=== PATIENT | female | born 1985 | race Caucasian/White ===

== ENCOUNTER 2017-06-27 14:00 | Inpatient (IN) | payer OTHER ==
[2017-06-27] MEDS ORDERED: BETAMET ACET/BETAMET NA PH 30 MG/5 ML VIAL IM ONE (15:00)
[2017-06-27 15:55] LABS: URINE APPEARANCE CLEAR; URINE BILIRUBIN NEGATIVE (NEGATIVE); URINE BLOOD 1+ (NEGATIVE); URINE COLOR LTYELLOW; URINE GLUCOSE (UA) NEGATIVE (NEGATIVE); URINE KETONE NEGATIVE (NEGATIVE); URINE LEUK ESTERASE TRACE (NEGATIVE); URINE NITRITE NEGATIVE (NEGATIVE); URINE PROTEIN NEGATIVE (NEGATIVE); URINE UROBILINOGEN NEGATIVE mg/dL (0.2-1.0)
[2017-06-27 16:24] LABS: BASOPHIL 0.3 % (0-2.0); EOSINOPHIL 1.7 % (0-4.5); MCH 30.2 pg (25.7-33.7); MCHC 34.8 g/dl (32.0-36.0); MEAN CELL VOLUME 86.9 fl (80-96); MEAN PLT VOLUME 10.4 fl (7.5-11.1); NEUTROPHILS 69.3 % (42.8-82.8); PLATELET COUNT 153 K/MM3 (134-434); RDW 13.9 % (11.6-15.6); WHITE BLOOD COUNT 7.9 K/mm3 (4.0-10.0)
[2017-06-27 16:40] LABS: ANION GAP 8 (8-16); CALCIUM 8.8 mg/dL (8.5-10.1); CO2 25 mmol/L (21-32); CREATININE 0.5 mg/dL (0.55-1.02); GLUCOSE,RANDOM 88 mg/dL (74-106); SGOT/AST 27 U/L (15-37); SGPT/ALT 24 U/L (12-78); URIC ACID 3.6 mg/dL (2.6-7.2)
[2017-06-27 16:44] LABS: INR 0.95 (0.82-1.09); PROTHROMBIN TIME (PATIENT) 10.4 SEC (9.98-11.88)
[2017-06-27 16:46] LABS: URINE BACTERIA RARE /hpf (NONE SEEN); URINE MUCUS RARE; URINE RBC 1 /hpf (0-3); URINE WBC 2 /hpf (3-5)
[2017-06-27 16:47] LABS: ACTIVATED PTT 27.9 SECONDS (26.9-34.4)
[2017-06-27] MEDS ORDERED: ELECTROLYTE-148 SOLN 500 ML IV ONE (17:00)
[2017-06-27] MEDS ORDERED: ELECTROLYTE-148 SOLN 500 ML IV SCH (17:30)
[2017-06-27] MEDS ORDERED: CITRIC ACID/SODIUM CITRATE 30 ML UNIT-DOSE CUP PO ONE (17:30)
[2017-06-27 17:39] VITALS: BMI 33.9
[2017-06-27] MEDS ORDERED: TUBERCULIN PPD 5 TU/0.1ML SYRINGE (IN PATIENT USE ONLY) ID ONE (18:00)
[2017-06-27] MEDS ORDERED: IBUPROFEN 800 MG/8 ML IJ IVPB PRN ×2 (21:29→21:32)
[2017-06-27] MEDS ORDERED: IBUPROFEN 600 MG TABLET (FP) PO PRN (21:29)
[2017-06-27] MEDS ORDERED: METHYLERGONOVINE MALEATE 0.2 MG/1 ML AMP IM PRN (21:29)
[2017-06-27] MEDS ORDERED: D5W-LR W/ 20 UNITS OXYTOCIN 1,000 ML IV SCH (21:30)
--- NOTE | 2017-06-27 21:32 | HP ---
Past Medical History - Admission History of Present Illness: 32 yo @35 10/21 by first trimester ultrasound, EDC 07/31/2017 complicated by: 1. dichorionic / diamniotic twin gestation, spontaneous concordant growth, EFW (06/27): Twin A 2268 (36%); Twin B 2557 (59%); 11% discordance 2. abnormal 1 H GCT (147) - normal 3 H GTT 3. Maternal obesity (BMI 33) 4. Recent ultrasound findings with twin A low normal fluid volume, today on ultrasound MVP 2.7 Patient was sent for evaluation from the office today where she was undergoing routine ultrasound and was found to have elevated BPs, new onset severe headache and significant edema. She reports no other compaints, + FM, no LOF or VB History Source: Patient Limitations to Obtaining History: No Limitations - Past Medical History Cardiovascular: No: HTN Pulmonary: No: Asthma Gastrointestinal: No: GERD ...: 3 ...Para: 0 ...Term: 0 ...: 0 ...Spon : 2 ...Induced : 0 ...Multiple Gestation: 0 ...LMP: 10/12/16 ... Weeks Gestation by Dates: 36.6 ...EDC by Dates: 07/19/17 ...EDC by Sono: 07/31/17 Heme/Onc: No: Anemia - Past Surgical History Past Surgical History: Yes: None Hx Myomectomy: No Hx Transabdominal Cerclage: No - Smoking History Smoking history: Former smoker Have you smoked in the past 12 months: Yes Aproximately how many cigarettes per day: 20 If you are a former smoker, when did you quit?: 8 months ago - Alcohol/Substance Use Hx Alcohol Use: No History of Substance Use: reports: None - Social History History of Recent Travel: No Home Medications - Allergies Allergies/Adverse Reactions: Allergies Allergy/AdvReac Type Severity Reaction Status Date / Time No Known Allergies Allergy Verified 06/27/17 14:48 - Home Medications Home Medications: Ambulatory Orders Vit No.130/Iron/FA [ Vitamins] 1 each PO DAILY 06/27/17 Ranitidine HCl [Zantac 75] 75 mg PO DAILY 06/27/17 Review of Systems - Review of Systems Neck: reports: No Symptoms Cardiovascular: reports: Edema Respiratory: reports: No Symptoms Gastrointestinal: reports: No Symptoms Genitourinary: reports: No Symptoms Musculoskeletal: reports: No Symptoms Integumentary: reports: No Symptoms Neurological: reports: Headache Endocrine: reports: No Symptoms Hematology/Lymphatic: reports: No Symptoms Psychiatric: reports: No Symptoms Physical Exam - Maternity Vital Signs: Vital Signs Temperature 97.6 F 06/27/17 18:00 Pulse Rate 87 06/27/17 19:00 Respiratory Rate 18 06/27/17 19:00 Blood Pressure 137/84 06/27/17 19:00 O2 Sat by Pulse Oximetry (%) Constitutional: Yes: Well Nourished, No Distress, Calm Neck: Yes: Supple Cardiovascular: Yes: Regular Rate and Rhythm Lungs: Clear to auscultation - Abdominal Exam/OB Fundal Height: 40 Number of Fetuses: Multiple Presentation: Twins Contractions: No Category: I Accelerations: Non-Uniform Decelerations: None - Physical Exam Edema: Yes Edema: LLE: 1+, RLE: 1+ Psychiatric: Yes: Alert, Oriented - Labs Lab Results: CBC, BMP 06/27/17 16:00 06/27/17 16:00 PNL: O positive, antibody negative, RPR NR, Rubella Immune, HBs Ag negative, HIV negative Hemorrhage Risk Assessment - Risk Factors Medium Risk Factors: Yes: Multiple gestation High Risk Factors: Yes: None Risk Score: 1 Risk Level: Medium Risk Assessment/Plan 32 yo @ 35 1/7 wks elevated BP, new onset YEAGER 1. Reviewed symptoms with patient, discussed concern for preeclampsia, given severity of symptoms and new onset BP, concern for preeclampsia with severe symptoms. Discussed proceeding with delivery via section. Discussed risks of delivery including but not limited to infection, bleeding, damage to surrounding organs such as bowel bladder and ureters, injury to infants. She expressed understanding. 2. Given < 36 wks, will give BMZ x1 3. Will f/u labs 4. Will consider magnesium PP for prophylaxis if BPs continue to be elevated PP 5. Will proceed with delivery
--- NOTE | 2017-06-27 21:34 | PN ---
Delivery - Delivery Section: Primary EBL (cc): 600 Delivery, Single - [place] Feeding Plan Initial Plan: Elected not to breastfeed exclusively throughout hospitalization Delivery, Multiple Births - Condition of Multiple Births [place] 1 (A) Medical Insurance Claims Specialist/Boots And Shoes Supervisor Present: Yes Infant Gender: Female Position: Right, OT Total Hours ROM (HRS/MINS): 4lb 4oz Placenta: Yes: Expressed [place] 2 (B) Medical Insurance Claims Specialist/Boots And Shoes Supervisor Present: Yes Gender: Male Position: Left, OT Total Hours ROM (HRS/MINS): 5lb 7 oz Placenta: Yes: Expressed - 1 Minute Score: 9 5 Minutes Score: 9 2 (B) 1 Minute Score: 9 2 (B) 5 Minutes Score: 9 Remarks - Remarks Remarks: Surgeon: Lawrence Assist: Harish Anesthesia: Bret IVF: 2000 UOP:600 Findings: Baby A - Female, ROT, 9,9 wt 4lb 4 oz; Baby B - Male, LOT, head extended, 9,9 wt 5lb 7 oz; normal tubes and ovaries bilaterally Dictation: [id number]
[2017-06-27 21:42] LABS: ARTERIAL BLD GAS O2 SATURATION 57.7 % (90-98.9); ARTERIAL BLOOD GAS BASE EXCESS -2.6 meq/l (-2-2); ARTERIAL BLOOD GAS HCO3 22.6 meq/L (22-26); ARTERIAL BLOOD GAS PO2 25.7 mmHg (80-100)
[2017-06-27 21:45] LABS: ARTERIAL BLD GAS O2 SATURATION 34.1 % (90-98.9); ARTERIAL BLOOD GAS BASE EXCESS -4.6 meq/l (-2-2); ARTERIAL BLOOD GAS HCO3 23.3 meq/L (22-26); ARTERIAL BLOOD GAS PO2 19.7 mmHg (80-100)
[2017-06-27 21:49] LABS: ARTERIAL BLOOD GAS pH 7.35 (7.35-7.45); LPM/O2% 21%; PT. ON O2? NO
[2017-06-27 21:50] LABS: ARTERIAL BLOOD GAS pH 7.25 (7.35-7.45); LPM/O2% 21%; PT. ON O2? NO
[2017-06-28] MEDS: ONDANSETRON 4 MG/2 ML VIAL IVPUSH PRN ×2 (00:04→05:58)
[2017-06-28 00:22] LABS: BASOPHIL 0.1 % (0-2.0); MCH 29.5 pg (25.7-33.7); MCHC 33.7 g/dl (32.0-36.0); MEAN CELL VOLUME 87.4 fl (80-96); MEAN PLT VOLUME 10.6 fl (7.5-11.1); NEUTROPHILS 89.8 % (42.8-82.8); PLATELET COUNT 139 K/MM3 (134-434); WHITE BLOOD COUNT 12.9 K/mm3 (4.0-10.0)
[2017-06-28 00:43] LABS: ALBUMIN 2.2 g/dl (3.4-5.0); ANION GAP 12 (8-16); BILIRUBIN,TOTAL 0.4 mg/dL (0.2-1.0); CALCIUM 7.9 mg/dL (8.5-10.1); CO2 22 mmol/L (21-32); CREATININE 0.5 mg/dL (0.55-1.02); GLUCOSE,RANDOM 119 mg/dL (74-106); SGOT/AST 31 U/L (15-37); SGPT/ALT 27 U/L (12-78); TOT PROT 5.6 g/dl (6.4-8.2)
[2017-06-28 00:44] LABS: ALK PHOS 170 U/L (45-117)
[2017-06-28] MEDS ORDERED: ONDANSETRON 4 MG/2 ML VIAL ONE (05:55)
[2017-06-28 06:49] LABS: BASOPHIL 1.1 % (0-2.0); MCH 29.4 pg (25.7-33.7); MCHC 33.8 g/dl (32.0-36.0); MEAN CELL VOLUME 87.1 fl (80-96); MEAN PLT VOLUME 8.6 fl (7.5-11.1); NEUTROPHILS 84.5 % (42.8-82.8); PLATELET COUNT 113 K/MM3 (134-434); RDW 13.7 % (11.6-15.6)
--- NOTE | 2017-06-28 07:20 | PN ---
Post Progress Note - Subjective Subjective: Patient without acute complaints. Had nausea and vomiting overnight, now resolved. Also episode if itching, resolved s/p bendryl. Episode of blurry vision last night, BP not elevated and PEC labs normal. Currently NPO. No ambulation or voiding yet. Mclean with clear yellow urine. Denies change in vision, RUQ pain, scotomata Desires to breastfeed Type of Delivery: Primary C/S Vital Signs: Vital Signs Temperature 98.2 F 06/28/17 06:30 Pulse Rate 83 06/28/17 06:30 Respiratory Rate 20 06/28/17 06:30 Blood Pressure 138/72 06/28/17 06:30 O2 Sat by Pulse Oximetry (%) 100 06/27/17 22:30 Breast Exam: Yes: Soft Uterus: Yes: Fundus Firm, Fundus below umbilicus Incision: Yes: Dressing dry and intact Abdomen/GI: Yes: Abdomen soft, Tender (incisional), Passing flatus, Tolerating PO Lochia: Yes: Serosa Lochia, amount: Small Extremities: Yes: Calves non-tender, Edema (+1) - Labs Labs: CBC WBC 15.0 K/mm3 (4.0-10.0) H 06/28/17 06:30 RBC 3.45 M/mm3 (3.60-5.2) L 06/28/17 06:30 Hgb 10.2 GM/dL (10.7-15.3) L 06/28/17 06:30 Hct 30.1 % (32.4-45.2) L 06/28/17 06:30 MCV 87.1 fl (80-96) 06/28/17 06:30 MCH 29.4 pg (25.7-33.7) 06/28/17 06:30 MCHC 33.8 g/dl (32.0-36.0) 06/28/17 06:30 RDW 13.7 % (11.6-15.6) 06/28/17 06:30 Plt Count 113 K/MM3 (134-434) L 06/28/17 06:30 MPV 8.6 fl (7.5-11.1) D 06/28/17 06:30 Neutrophils % 84.5 % (42.8-82.8) H 06/28/17 06:30 Lymphocytes % 5.5 % (8-40) L 06/28/17 06:30 Monocytes % 8.9 % (3.8-10.2) D 06/28/17 06:30 Eosinophils % 0.0 % (0-4.5) 06/28/17 06:30 Basophils % 1.1 % (0-2.0) D 06/28/17 06:30 Retic Count 2.19 % (0.5-1.5) H 06/27/17 16:00 Assessment/Plan 32 yo POD # 1 s/p primary CD 1. No S/S PEC, BP normal. Plt with mild decrease today. Will continue to follow for Sx PEC 2. AM CBC stable 3. Rh positive status, no rhogam indicated. 4. Encourage ambulation and incentive spirometer use 5. Continue oral pain medication 6. Anticipate discharge home postoperative day #3 or #4
[2017-06-28] MEDS: PRENATAL VITAMINS W/ FOLIC ACID TABLET (FP) PO SCH (09:10)
--- NOTE | 2017-06-28 10:23 | PN ---
Progress Note (short form) - Note Progress Note: Post op day#1.S/P C Section under spinal anesthesia with duramorph uneventful.Patient stable and c/o little pain for which she is on medication.No any anesthesia related problem.Patient DC from the anesthesia care.
--- NOTE | 2017-06-28 12:50 | OP ---
DATE OF OPERATION: 06/27/2017 ATTENDING PHYSICIAN RESPONSIBLE TO SIGN REPORT: Dariana Bravo MD PREOPERATIVE DIAGNOSIS: Intrauterine 35 weeks, cervical preeclampsia. POSTOPERATIVE DIAGNOSIS: Intrauterine 35 weeks, cervical preeclampsia. FINDINGS: Female in LOT position; Apgars 9, 9; weight 9 pounds, 2 ounces, length 19.5 inches; nuchal cord x1 reduced, normal tubes and ovaries bilaterally. SURGERY: Primary delivery via low transverse Pfannenstiel skin incision. SURGEON: Dariana Bravo MD WEB UI SOFTWARE ENGINEER: Jp Moreira MD ANESTHESIOLOGIST: González Queen MD INTRAVENOUS FLUIDS: 2000. URINE OUTPUT: 600. ESTIMATED BLOOD LOSS: 600. FINDINGS: Baby A female infant in ROT position; Apgars 9, 9; weight 4 pounds, 4 ounces. Baby B male in LOT position; head extended, Apgars 9, 9; weight 5 pounds, 7 ounces. Normal tubes and ovaries bilaterally; appendix noted normal. INDICATIONS: Patient is a 32-year-old 3, para 2, at 35-1/7 weeks gestation, who presented for evaluation of elevated blood pressures and headaches. She was evaluated, noted to have persistent elevated blood pressures with concern for preeclampsia with severe features. She was counseled regarding delivery via . Risks, benefits, alternatives, and complications of procedure were discussed including infection, bleeding, damage to surrounding organs such as bowel, bladder, ureters. She expressed understanding and was brought to the operating room. DESCRIPTION OF PROCEDURE: When anesthesia was found to be adequate, patient was prepped and draped in a normal sterile fashion, placed in dorsal supine position with a leftward tilt. An approximately 11-cm skin incision was made with the knife and carried to the underlying rectus fascia using the Bovie electrocautery. The fascia was nicked in the midline, extended laterally using the Manuel scissors. The inferior portion of the incision was tented up using José clamps and dissected off the underlying rectus muscles using the Manuel scissors. Attention was brought to the superior portion, where in similar fashion, it was tented up using José clamps, and dissected off the underlying rectus muscles using the Manuel scissors. The rectus muscles were in the midline. The peritoneum was entered bluntly and extended laterally and inferiorly using the Metzenbaum scissors. The vesicouterine peritoneum was identified, entered sharply, and the hysterotomy was performed and extended laterally using the bandaged scissors. A was brought to the hysterotomy site. Amniotomy was performed. Clear fluid noted. was brought to the hysterotomy site, and the head was delivered followed by shoulders and body without difficulty. Cord blood and cord gases were collected and sent. Infant B was brought to the hysterotomy site. The head was noted to be extended. The head was flexed, and the infants head was brought to the hysterotomy site, and the head was delivered followed by shoulders and body without difficulty. Cord blood and cord gases were collected and sent. The Placenta was manually extracted. The uterus was cleared of all clot and debris. The uterus was closed using 0 Biosyn in a running layer, 2nd layer was an imbricated layer. The peritoneum was closed using 0 Biosyn in a running fashion. The peritoneum was closed using 2-0 Biosyn in a running fashion. The rectus muscles were reapproximated using 0 Biosyn in an interrupted fashion. The fascia was closed using 0 Vicryl in a running fashion. The subcutaneous fat was reapproximated using 0 Vicryl in a running fashion, and the skin was reapproximated using 3-0 Vicryl. The patient tolerated the procedure well. Estimated blood loss was 600 mL. Patient was brought to the recovery room in stable condition. Esha [id number]
[2017-06-28] MEDS: oxyCODONE HCL 5 MG TABLET PO PRN ×3 (13:06→23:18)
[2017-06-28] MEDS: ACETAMINOPHEN 325 MG TABLET (FP) PO PRN ×3 (13:06→23:18)
[2017-06-28] MEDS: SIMETHICONE 80 MG TAB.CHEW (FP) PO PRN ×3 (13:07→23:18)
[2017-06-28] MEDS ORDERED: BISACODYL 10 MG SUPP.RECT RC PRN (21:30)
--- NOTE | 2017-06-29 08:34 | PN ---
Progress Note (short form) - Note Progress Note: pod 2 doing well, ambulating , has cramps, no n/v, passing gas CBC, BMP 06/28/17 06:30 06/27/17 23:55 Last Vital Signs Temp Pulse Resp BP Pulse Ox 97.9 F 80 20 131/78 100 06/28/17 21:00 06/28/17 21:00 06/28/17 21:00 06/28/17 21:00 06/27/17 22:30 abdomen soft, no distension, no cva incision dry, clean no calf tenderness lochia mild plan ambulate, pain management cbc in am
[2017-06-29] MEDS: PRENATAL VITAMINS W/ FOLIC ACID TABLET (FP) PO SCH (09:52)
[2017-06-29] MEDS: SIMETHICONE 80 MG TAB.CHEW (FP) PO PRN (12:22)
[2017-06-29] MEDS: oxyCODONE HCL 5 MG TABLET PO PRN (12:23)
[2017-06-29] MEDS: ACETAMINOPHEN 325 MG TABLET (FP) PO PRN (12:23)
[2017-06-30] MEDS: SIMETHICONE 80 MG TAB.CHEW (FP) PO PRN ×2 (03:03→12:32)
[2017-06-30] MEDS: oxyCODONE HCL 5 MG TABLET PO PRN ×2 (03:03→12:32)
[2017-06-30] MEDS: ACETAMINOPHEN 325 MG TABLET (FP) PO PRN ×2 (03:03→12:33)
[2017-06-30 07:28] LABS: BASOPHIL 0.9 % (0-2.0); EOSINOPHIL 1.8 % (0-4.5); MCH 29.8 pg (25.7-33.7); MCHC 34.2 g/dl (32.0-36.0); MEAN CELL VOLUME 87.2 fl (80-96); MEAN PLT VOLUME 9.3 fl (7.5-11.1); NEUTROPHILS 68.2 % (42.8-82.8); PLATELET COUNT 179 K/MM3 (134-434); RDW 14.1 % (11.6-15.6); WHITE BLOOD COUNT 11.3 K/mm3 (4.0-10.0)
--- NOTE | 2017-06-30 10:54 | PN ---
Progress Note (short form) - Note Progress Note: pod 3 ambulating, voids ok, passing gas CBC, BMP 06/30/17 07:00 06/27/17 23:55 Last Vital Signs Temp Pulse Resp BP Pulse Ox 98.5 F 86 20 127/84 100 06/30/17 08:52 06/30/17 08:52 06/30/17 08:52 06/30/17 08:52 06/27/17 22:30 abdomen soft, no distension , no cva incision dry , claen no calf tenderness plan ambulate, ,plan for d/c home in am
[2017-06-30] MEDS: PRENATAL VITAMINS W/ FOLIC ACID TABLET (FP) PO SCH (12:32)
[2017-07-01] MEDS: ACETAMINOPHEN 325 MG TABLET (FP) PO PRN (01:38)
[2017-07-01] MEDS: SIMETHICONE 80 MG TAB.CHEW (FP) PO PRN (01:39)
[2017-07-01 10:19] VITALS: BP 139/63; PULSE 74; TEMP 98.6
[2017-07-01] MEDS: PRENATAL VITAMINS W/ FOLIC ACID TABLET (FP) PO SCH (10:40)
--- NOTE | 2017-07-01 14:17 | DS ---
Physical Exam-RESPIRATORY THERAPY MANAGER Vital Signs: Vital Signs Temperature 98.6 F 07/01/17 09:00 Pulse Rate 74 07/01/17 09:00 Respiratory Rate 20 07/01/17 09:00 Blood Pressure 139/63 07/01/17 09:00 O2 Sat by Pulse Oximetry (%) 100 06/27/17 22:30 Constitutional: Yes: Well Nourished, No Distress, Calm Eyes: Yes: WNL, Conjunctiva Clear, EOM Intact HENT: Yes: WNL, Atraumatic, Normocephalic Neck: Yes: WNL, Supple, Trachea Midline Cardiovascular: Yes: WNL, Regular Rate and Rhythm Respiratory: Yes: WNL, Regular, CTA Bilaterally Gastrointestinal: Yes: WNL ...Rectal Exam: Yes: WNL Renal/: Yes: WNL ....Post : Yes: Uterus firm, Uterus non-tender, Slight lochia rubra Breast(s): Yes: WNL Musculoskeletal: Yes: WNL Extremities: Yes: WNL Edema: No Integumentary: Yes: WNL Wound/Incision: Yes: Clean/Dry, Well Approximated, Steri Strips Neurological: Yes: WNL, Alert, Oriented ...Motor Strength: WNL Psychiatric: Yes: WNL, Alert, Oriented Labs: CBC, BMP 06/30/17 07:00 06/27/17 23:55 Delivery - Delivery Section: Primary, Low Flap Transverse Type of Anesthesia: Spinal Episiotomy/Laceration: None EBL (cc): 600 Delivery, Single - [place] Feeding Plan Initial Plan: Elected not to breastfeed exclusively throughout hospitalization Delivery, Multiple Births - Condition of Multiple Births [place] 1 (A) Travel Rn/Youth Accommodation Support Worker Present: Yes Travel Rn: Martha Breen Infant Gender: Female Weight: 4 lb 4 oz Position: Right, OT Total Hours ROM (HRS/MINS): 4lb 4oz [place] 2 (B) Travel Rn/Youth Accommodation Support Worker Present: Yes Travel Rn: Martha Breen Gender: Male Weight: 5 lb 7 oz Position: Left, OT Total Hours ROM (HRS/MINS): 5lb 7 oz - 1 Minute Score: 9 5 Minutes Score: 9 [place] 2 (B) 1 Minute Score: 9 2 (B) 5 Minutes Score: 9 Discharge Summary Reason For Visit: C SECTION Procedures: Principal: primary LST c/s - Instructions Diet, Activity, Other Instructions: return to office in 1 week for incision check and 6 weeks for check. call for appointment. Referrals: Dariana Bravo MD [Staff Physician] - - Home Medications Comprehensive Discharge Medication List: Ambulatory Orders Vit No.130/Iron/FA [ Vitamins] 1 each PO DAILY 06/27/17 Ranitidine HCl [Zantac 75] 75 mg PO DAILY 06/27/17
--- NOTE | 2017-07-02 13:20 | PATH ---
Surgical Pathology Report Patient Name: MEGHAN FRAUSTO [facility]. Rec. #: [id number] /Age/Gender: 1985 (Age: 32) / F Account: [id number] Location: [facility] OBS/REGIONAL ENGAGEMENT CONSULTANT Taken: 06/27/2017 Received: 06/28/2017 Reported: 07/02/2017 Physicians: Dariana Bravo Specimen(s) Received PLACENTA,TWIN Clinical History , twin gestation, spontaneous x2, preeclampsia Primary c/section for preeclampsia Final Diagnosis TWIN PLACENTA, DELIVERY: DIAMNIOTIC DICHORIONIC TWIN PLACENTA: PLACENTA TWIN A: FOCALLY DISRUPTED THIRD TRIMESTER PLACENTA WITH MILD PREVILLOUS, PERIVILLOUS, AND PRECHORIONIC FIBRIN DEPOSITION, THREE VESSEL UMBILICAL CORD, AND UNREMARKABLE PLACENTAL MEMBRANES. PLACENTA TWIN B: FOCALLY DISRUPTED THIRD TRIMESTER PLACENTA WITH MILD PREVILLOUS, PERIVILLOUS, AND PRECHORIONIC FIBRIN DEPOSITION, THREE VESSEL UMBILICAL CORD, AND UNREMARKABLE PLACENTAL MEMBRANES. Electronically Signed Edgardo Blake M.D. Gross Description Received in formalin labeled "twin A and B placenta" is a twin placenta, comprised of 2 separate discs, joined by a dividing membranes. There is 1 clamp marking the umbilical cord of placenta "A" and 2 clamps marking the umbilical cord of placenta "B" per the surgeon. Placenta "A" is 379 g and measures 20.0 x 15.0 x 1.5 cm. The attached membranes are saab, translucent with focal opacities and insert marginally. The umbilical cord measures 15 cm in length and averages 0.9 cm in diameter. The cord inserts eccentrically, 6 cm to the nearest margin. No true knots or strictures are identified. Cut surface of the umbilical cord reveals 3 vessels. The surface is herrera-blue with fibrin deposition and appropriate caliber vessels. The maternal surface is red-brown with focal defects. Sectioning reveals red-brown, spongy parenchyma. No focal lesions are identified. Placenta "B" is 351 g and measures 16.5 x 14.5 x 1.5 cm. The attached membranes are saab, translucent with focal opacities and insert marginally. The umbilical cord measures 8 cm in length and averages 1.3 cm in diameter. The cord inserts eccentrically, 2 cm to the nearest margin. No true knots or strictures are identified. Cut surface of the umbilical cord reveals 3 vessels. The surface is herrera-blue with fibrin deposition and appropriate caliber vessels. The maternal surface is red-brown with focal defects. Sectioning reveals red-brown, spongy parenchyma. No lesions are identified. Wastewater Project Manager sections are submitted in 7 cassettes as follows: 1-placenta "A" membrane roll and umbilical cord; 9-3-oukm-thickness sections of placenta "A"; 4-dividing membranes; 5-placenta "B" membrane rolls and umbilical cord; 9-2-bssc-thickness sections of placenta "B". 06/29/2017
== END 2017-07-01 14:15 | disposition home or self-care (01) | DRG 766 ==
LOC: JDEL 14:00 → JLDR 16:00 → J3W 23:37
PROVIDERS: ADMIT Obstetrics & Gynecology; ATTEND Obstetrics & Gynecology
PROC: 10D00Z1 Extraction of Products of Conception, Low, Open Approach (ICD-10-PCS; principal; 2017-06-27)
DX: O30.043 Twin pregnancy, dichorionic/diamniotic, third trimester (principal); O14.94 Unspecified pre-eclampsia, complicating childbirth; Z3A.35 35 weeks gestation of pregnancy; Z37.2 Twins, both liveborn
CPT/HCPCS: 36415; 36600; 59025; 80048; 80053; 81003; 81015; 82803; 82977; 83010; 84450; 84460; 84550; 85025; 85044; 85610; 85730; 86593; 86850; 86900; 86901; 88307-TC; 96372

== ENCOUNTER 2017-07-15 18:14 | Inpatient (IN) | payer OTHER ==
[2017-07-15 18:19] VITALS: BMI 28.5
--- NOTE | 2017-07-15 18:39 | PDOC ---
Attending Attestation - Resident Resident Name: Jsesica Moe - ED Attending Attestation I have performed the following: I have examined & evaluated the patient, The case was reviewed & discussed with the resident, I agree w/resident's findings & plan, Exceptions are as noted - HPI HPI: 07/15/17 19:35 32y F approx 2 weeks s/p csection sent to the ED for evaluation by Dr. Moreira for evaluation of her csection wound. The pt was seen by dr. Moreira a few days ago and started on abx due to some redness and wound dehicense. pt denies any fever/chills, abd pain, generalized weakness. on exam pt appears well, in no distress her abd noted for lower abd incision with approx .5cm wound dehicience. no discharge noted. there is very mild eruthema on the border of the incision intermittently w/o warmth, inudration, tenderness. pts vitals noted for htn will ck ua, blood work to r/o preeclampsia pt dnies any headache/visoin changes suggestive of such 07/16/17 12:35 labs reviewed and no signs of proteinuria, abnormal LFTs or abnormal platelets the pt is to be admitted per plumber cub due to persistent htn will admit to dr. Fox service Case discussed in detail with admitting physician including history, physical exam and ancillary studies. Admitting physician has assumed care for the patient, will follow all pending diagnostics and will complete the evaluation and treatment. - Physicial Exam PE: 07/17/17 09:12 see above - Medical Decision Making 07/17/17 09:12 see above
--- NOTE | 2017-07-15 18:49 | PDOC ---
History of Present Illness - General Chief Complaint: Wound Infection Stated Complaint: PAIN Time Seen by Provider: 07/15/17 18:19 History Source: Patient - History of Present Illness Initial Comments: 07/15/17 19:09 CC: C-S wound infection Patient is a 32 y.o. female with a PMH of recent (06/27/17) C-S who presents today c/o foul odor, discharge and tenderness @ her C-S site. Patient notes she was evaluated by her telecommunication systems designer last Sunday (07/09/17) at which time her telecommunication systems designer , Dr. Moreira, started her on Keflex (500 mg BID). Patient states she has noticed increasing erythema as well as a foul odor since 2 days previous and she contacted Dr. Moreira who advised she go to urgent care or the ED. Patient denies any fevers, chills, nausea, vomiting or post operative complications. Patient had multiple births (twins) with male child remaining in the NICU for breathing difficulties. PMD: Dr. Moreira NKDA Surgical: C-S (06/27/17) Social: (+) nicotine: 3-4 cigarettes/daily, (-) alcohol, (-) marijuana/cocaine/ heroin Past History - Past Medical History Allergies/Adverse Reactions: Allergies Allergy/AdvReac Type Severity Reaction Status Date / Time No Known Allergies Allergy Verified 07/15/17 18:16 Home Medications: Ambulatory Orders Vit No.130/Iron/FA [ Vitamins] 1 each PO DAILY 06/27/17 Ranitidine HCl [Zantac 75] 75 mg PO DAILY 06/27/17 Ibuprofen [Motrin -] 600 mg PO QID #28 tablet 07/01/17 Oxycodone HCl/Acetaminophen [Percocet 5-325 mg Tablet] 1 tab PO Q6H #20 tablet MDD 4 07/01/17 Asthma: No Cancer: No Cardiac Disorders: No Diabetes: No HTN: No Seizures: No Thyroid Disease: No - Suicide/Smoking/Psychosocial Hx Smoking History: Current every day smoker Have you smoked in the past 12 months: Yes Number of Cigarettes Smoked Daily: 20 If you are a former smoker, when did you quit?: 8 months ago Information on smoking cessation initiated: No Hx Alcohol Use: No Drug/Substance Use Hx: No Hx Substance Use Treatment: No Review of Systems - Review of Systems Constitutional: No: Chills, Fever HEENTM: No: Blurred Vision, Throat Pain Respiratory: No: Cough, Shortness of Breath Cardiac (ROS): No: Chest Pain, Edema, Lightheadedness, Palpitations ABD/GI: No: Constipated, Diarrhea, Nausea, Vomiting : No: Burning, Dysuria Neurological: No: Headache, Tingling All Other Systems: Reviewed and Negative *Physical Exam - Vital Signs Last Vital Signs Temp Pulse Resp BP Pulse Ox 98.7 F 64 18 150/90 100 07/15/17 18:16 07/15/17 18:16 07/15/17 18:16 07/15/17 18:16 07/15/17 18:16 - Physical Exam General Appearance: Yes: Nourished, Appropriately Dressed Neck: positive: Trachea midline, Supple Respiratory/Chest: positive: Lungs Clear, Normal Breath Sounds Cardiovascular: positive: Regular Rhythm, Regular Rate. negative: Edema Gastrointestinal/Abdominal: positive: Normal Bowel Sounds, Soft, Other (6 cm C/ S incision with some erythema, foul odor, small pinpoint lesion on L side with grayish discoloration; U/S showed no fluid collection) Musculoskeletal: positive: Normal Inspection. negative: CVA Tenderness Extremity: positive: Normal Inspection Integumentary: positive: Normal Color, Dry, Warm Neurologic: positive: Fully Oriented, Alert Medical Decision Making - Medical Decision Making 07/15/17 18:44 Patient is a 32 y/o female with a recent (06/27) C-S who presents with concern for surgical incision infection. On PE, patient's BP is noted to be 150's/90's - concern for pre-eclampsia. Bedside U/S showed no fluid collection @ incision site. PLAN: 1. UA 2. CBC, CMP 3. Bedside U/S 07/15/17 18:[address] Ross (covering for patient's telecommunication systems designer, Dr. Moreira) - patient was evaluated in office on 07/09 @ which time BP was 114/86. Recommends starting with Labetalol (20 mg IV) and if systolic pressure remains 140's giving a dose of Procardia XL (30 mg). Requests CBC, CMP for pre- eclampsia evaluation and to be called with lab results/updated on patient's BP. Dr. Ross: 07/15/17 19:18 Patient signed out to Dr. Torres (Resident) and Dr. Valencia (Attending) *DC/Admit/Observation/Transfer Diagnosis at time of Disposition: care following delivery
[2017-07-15] MEDS ORDERED: LABETALOL HCL 5 MG/1 ML (100MG/20 ML VIAL) IVPUSH ONE (18:53)
[2017-07-15] MEDS ORDERED: CEFAZOLIN (PRE-DOCKED) 1 GM in DEXTROSE 5%-WATER - 50 ML IVPB ONE (18:54)
[2017-07-15] MEDS ORDERED: ceFAZolin 2 GRAM PREMIX BAG IVPB ONE (18:57)
[2017-07-15] MEDS ORDERED: LABETALOL HCL 5 MG/1 ML (200MG/40ML VIAL) IVPB ONE (19:15)
[2017-07-15] MEDS ORDERED: CEFAZOLIN (PRE-DOCKED) 100 ML IVPB ONE (19:16)
[2017-07-15 19:32] LABS: URINE APPEARANCE SLCLOUDY; URINE BILIRUBIN NEGATIVE (NEGATIVE); URINE BLOOD 3+ (NEGATIVE); URINE COLOR LTYELLOW; URINE GLUCOSE (UA) NEGATIVE (NEGATIVE); URINE KETONE NEGATIVE (NEGATIVE); URINE LEUK ESTERASE NEGATIVE (NEGATIVE); URINE NITRITE NEGATIVE (NEGATIVE); URINE PROTEIN NEGATIVE (NEGATIVE); URINE UROBILINOGEN NEGATIVE mg/dL (0.2-1.0)
[2017-07-15 19:40] LABS: URINE MUCUS RARE; URINE RBC 3 /hpf (0-3); URINE WBC 9 /hpf (3-5)
[2017-07-15 19:40] LABS: BASOPHIL 1.3 % (0-2.0); EOSINOPHIL 4.1 % (0-4.5); MCH 29.5 pg (25.7-33.7); MCHC 33.7 g/dl (32.0-36.0); MEAN CELL VOLUME 87.6 fl (80-96); MEAN PLT VOLUME 9.2 fl (7.5-11.1); NEUTROPHILS 46.9 % (42.8-82.8); PLATELET COUNT 232 K/MM3 (134-434); RDW 14.5 % (11.6-15.6); WHITE BLOOD COUNT 5.5 K/mm3 (4.0-10.0)
[2017-07-15 20:02] LABS: ALBUMIN 3.6 g/dl (3.4-5.0); ALK PHOS 115 U/L (45-117); ANION GAP 4 (8-16); BILIRUBIN,TOTAL 0.5 mg/dL (0.2-1.0); CALCIUM 8.8 mg/dL (8.5-10.1); CO2 30 mmol/L (21-32); CREATININE 0.9 mg/dL (0.55-1.02); GLUCOSE,RANDOM 85 mg/dL (74-106); SGOT/AST 22 U/L (15-37); SGPT/ALT 31 U/L (12-78); TOT PROT 7.5 g/dl (6.4-8.2)
[2017-07-15] MEDS ORDERED: NIFEdipine E.R. 30 MG TABLET (FP) PO ONE (20:14)
--- NOTE | 2017-07-15 21:01 | PDOC ---
*Physical Exam - Vital Signs Last Vital Signs Temp Pulse Resp BP Pulse Ox 98.7 F 54 L 18 154/91 99 07/15/17 18:16 07/15/17 20:00 07/15/17 20:00 07/15/17 20:00 07/15/17 20:00 ED Treatment Course - LABORATORY CBC & Chemistry Diagram: 07/15/17 19:18 07/15/17 19:18 - ADDITIONAL ORDERS Additional order review: Laboratory Results 07/15/17 07/15/17 19:18 19:10 Sodium 139 Potassium 4.5 Chloride 105 Carbon Dioxide 30 D Anion Gap 4 L BUN 12 D Creatinine 0.9 D Creat Clearance w eGFR > 60 Random Glucose 85 D Calcium 8.8 Total Bilirubin 0.5 D AST 22 D ALT 31 Alkaline Phosphatase 115 D Total Protein 7.5 D Albumin 3.6 D Urine Color Ltyellow Urine Appearance Slcloudy Urine pH 6.0 Urine Protein Negative Urine Glucose (UA) Negative Urine Ketones Negative Urine Blood 3+ H Urine Nitrite Negative Urine Bilirubin Negative Urine Urobilinogen Negative Urine RBC 3 Urine WBC 9 Ur Epithelial Cells Rare Urine Mucus Rare 07/15/17 19:18 RBC 4.58 D MCV 87.6 MCHC 33.7 RDW 14.5 MPV 9.2 Neutrophils % 46.9 D Lymphocytes % 40.0 D Monocytes % 7.7 Eosinophils % 4.1 D Basophils % 1.3 - Medications Given in the ED: ED Medications Discontinued Medications Generic Name Dose Route Start Last Admin Trade Name Freq PRN Reason Stop Dose Admin Cefazolin Sodium/Dextrose 2 gm 07/15/17 18:57 07/15/17 19:20 Ancef 2 Gm Premixed Ivpb - IVPB 07/15/17 18:58 2 gm ONCE ONE Administration Cefazolin Sodium 1 gm/ 100 mls @ 100 mls/hr 07/15/17 18:54 07/15/17 19:45 Dextrose IVPB 07/15/17 19:53 Not Given ONCE ONE Labetalol HCl 20 mg 07/15/17 18:53 07/15/17 19:25 Normodyne Injection - IVPUSH 07/15/17 18:54 20 mg ONCE ONE Administration Nifedipine 30 mg 07/15/17 20:14 07/15/17 20:26 Procardia Xl - PO 07/15/17 20:15 30 mg ONCE ONE Administration Medical Decision Making - Medical Decision Making 07/15/17 20:[address] Moe. Case discussed with Dr. Pompa who requested admission to [facility] for overnight monitoring of BP with diagnosis of hypertension. Instructed to do hourly BP checks and call her whenever BP exceeds 150/90. Will also write for 2 more doses of Cephazolin and do CMP/CBC in the morning. *DC/Admit/Observation/Transfer Diagnosis at time of Disposition: wound disruption, Hypertension, condition or complication - Discharge Dispostion Condition at time of disposition: Stable Admit: Yes
--- NOTE | 2017-07-15 23:29 | HP ---
Admitting History and Physical - Primary Care Physician PCP: Jp Moreira - Admission Chief Complaint: 32 yo s/p c/section @ 35 wks 06/27/17 for Preeclampsia with twins. She presented to ER due to minimal smudjing from the incision. She was noted to have BP 150/90, given dose of Labetalol 20mg IV, which did not improve BP. She was given Procardia 30mg XL and admited for observation. History of Present Illness: 1. Twin c/s 06/27/17 @ 35 weeks -Preeclampsia, no PP MgSo4 She denied YEAGER, blurry vision History Source: Patient Limitations to Obtaining History: No Limitations - Past Medical History ...LMP: 10/12/16 ...: No - Past Surgical History Past Surgical History: Yes: None, - Smoking History Smoking history: Current every day smoker Have you smoked in the past 12 months: Yes Aproximately how many cigarettes per day: 20 If you are a former smoker, when did you quit?: 8 months ago - Alcohol/Substance Use Hx Alcohol Use: No History of Substance Use: reports: None - Social History History of Recent Travel: No Home Medications - Allergies Allergies/Adverse Reactions: Allergies Allergy/AdvReac Type Severity Reaction Status Date / Time No Known Allergies Allergy Verified 07/15/17 18:16 - Home Medications Home Medications: Ambulatory Orders Nifedipine ER [Procardia Xl -] 30 mg PO DAILY #30 tab.er.24 07/16/17 Review of Systems - Review of Systems Constitutional: reports: No Symptoms Eyes: reports: No Symptoms Neck: reports: No Symptoms Cardiovascular: reports: No Symptoms Respiratory: reports: No Symptoms Gastrointestinal: reports: No Symptoms Genitourinary: reports: No Symptoms Breasts: reports: No Symptoms Reported Musculoskeletal: reports: No Symptoms Integumentary: reports: No Symptoms Neurological: reports: No Symptoms Endocrine: reports: No Symptoms Hematology/Lymphatic: reports: No Symptoms Psychiatric: reports: No Symptoms Physical Examination Vital Signs: Vital Signs Temperature 98.4 F 07/15/17 21:42 Pulse Rate 62 07/15/17 21:42 Respiratory Rate 16 07/15/17 21:42 Blood Pressure 130/87 07/15/17 21:42 O2 Sat by Pulse Oximetry (%) 99 07/15/17 21:42 Constitutional: Yes: Well Nourished Eyes: Yes: WNL HENT: Yes: WNL Neck: Yes: WNL Cardiovascular: Yes: WNL Respiratory: Yes: WNL Gastrointestinal: Yes: WNL Breast(s): Yes: WNL Extremities: Yes: WNL Edema: No Wound/Incision: Yes: Clean/Dry, Well Approximated Neurological: Yes: WNL Psychiatric: Yes: WNL Assessment/Plan 32yo P 2 now with h/o Preeclampsia now elevated BP All labs wnl Admit for BP observation Labs in am Start PO Procardia 30mg XL in am No evidance of wound infection
[2017-07-16] MEDS ORDERED: LABETALOL HCL 5 MG/1 ML (100MG/20 ML VIAL) IVPUSH PRN (00:33)
[2017-07-16] MEDS ORDERED: ceFAZolin SODIUM 1 GM VIAL ONE ×2 (01:56→09:11)
[2017-07-16] MEDS ORDERED: DEXTROSE 5%-WATER - 50 ML IVPB ONE ×2 (01:56→09:11)
[2017-07-16] MEDS: CEFAZOLIN 1 GM in DEXTROSE 5%-WATER - 50 ML IVPB SCH ×2 (02:03→11:29)
[2017-07-16] MEDS ORDERED: ACETAMINOPHEN 325 MG TABLET (FP) PO PRN (08:44)
--- NOTE | 2017-07-16 09:57 | PN ---
Post Progress Note - Subjective Subjective: 32 yo P2 s/p 1' c/section for twins with Preeclampsia denies YEAGER, visual problems, or RUQ pain Admits smoking a cigarette yesterday Post Day: 18 Type of Delivery: Primary C/S Vital Signs: Vital Signs Temperature 98.6 F 07/16/17 02:03 Pulse Rate 71 07/16/17 05:52 Respiratory Rate 18 07/16/17 05:52 Blood Pressure 114/77 07/16/17 05:52 O2 Sat by Pulse Oximetry (%) 99 07/15/17 21:42 Breast Exam: Yes: Soft Uterus: Yes: Fundus Firm, Fundus below umbilicus Incision: Yes: Sutures intact Abdomen/GI: Yes: Abdomen soft Lochia: Yes: Serosa. No: Rubra Lochia, amount: Small Extremities: Yes: Calves non-tender Activity: Ambulating - Labs Labs: CBC WBC 5.5 K/mm3 (4.0-10.0) D 07/15/17 19:18 RBC 4.58 M/mm3 (3.60-5.2) D 07/15/17 19:18 Hgb 13.5 GM/dL (10.7-15.3) D 07/15/17 19:18 Hct 40.1 % (32.4-45.2) D 07/15/17 19:18 MCV 87.6 fl (80-96) 07/15/17 19:18 MCH 29.5 pg (25.7-33.7) 07/15/17 19:18 MCHC 33.7 g/dl (32.0-36.0) 07/15/17 19:18 RDW 14.5 % (11.6-15.6) 07/15/17 19:18 Plt Count 232 K/MM3 (134-434) D 07/15/17 19:18 MPV 9.2 fl (7.5-11.1) 07/15/17 19:18 Neutrophils % 46.9 % (42.8-82.8) D 07/15/17 19:18 Lymphocytes % 40.0 % (8-40) D 07/15/17 19:18 Monocytes % 7.7 % (3.8-10.2) 07/15/17 19:18 Eosinophils % 4.1 % (0-4.5) D 07/15/17 19:18 Basophils % 1.3 % (0-2.0) 07/15/17 19:18 Assessment/Plan 32yo P 2 now with h/o Preeclampsia now elevated BP, incision intact improved BP Repeat Labs in am Continue PO Procardia 30mg XL No evidance of wound infection Will D/c today if BP and labs are stable Instructed not to smoke when she goes home, due to BP elevation risk
[2017-07-16] MEDS ORDERED: NIFEdipine E.R. 30 MG TABLET (FP) PO SCH (10:00)
[2017-07-16] MEDS ORDERED: FLU VACC QS2017-18 36MOS UP/PF 60 MCG/0.5 ML SYRINGE IM ONE (10:00)
[2017-07-16 11:04] LABS: EOSINOPHIL 4.1 % (0-4.5); MCH 28.8 pg (25.7-33.7); MCHC 32.6 g/dl (32.0-36.0); MEAN CELL VOLUME 88.3 fl (80-96); MEAN PLT VOLUME 8.9 fl (7.5-11.1); NEUTROPHILS 50.6 % (42.8-82.8); PLATELET COUNT 209 K/MM3 (134-434); RDW 14.9 % (11.6-15.6)
[2017-07-16 11:30] LABS: ALBUMIN 3.3 g/dl (3.4-5.0); ALK PHOS 106 U/L (45-117); ANION GAP 9 (8-16); BILIRUBIN,DIRECT < 0.1 mg/dL (0.0-0.2); BILIRUBIN,TOTAL 0.4 mg/dL (0.2-1.0); CALCIUM 8.5 mg/dL (8.5-10.1); CO2 28 mmol/L (21-32); CREATININE 0.8 mg/dL (0.55-1.02); GLUCOSE,RANDOM 90 mg/dL (74-106); SGOT/AST 17 U/L (15-37); SGPT/ALT 27 U/L (12-78); TOT PROT 6.8 g/dl (6.4-8.2)
[2017-07-16 11:39] VITALS: PULSE 68; TEMP 99
[2017-07-16 13:50] VITALS: BP 117/80
--- NOTE | 2017-07-16 23:29 | DS ---
Physical Exam-ALLERGIST/IMMUNOLOGIST Vital Signs: Vital Signs Temperature 99 F 07/16/17 10:00 Pulse Rate 68 07/16/17 10:00 Respiratory Rate 20 07/16/17 10:00 Blood Pressure 117/80 07/16/17 12:00 O2 Sat by Pulse Oximetry (%) 99 07/15/17 21:42 Constitutional: Yes: Well Nourished Eyes: Yes: WNL Neck: Yes: WNL Cardiovascular: Yes: Regular Rate and Rhythm Respiratory: Yes: CTA Bilaterally Gastrointestinal: Yes: Normal Bowel Sounds Pelvis: Yes: WNL External Genitalia: Yes: Normal ....Post : Yes: Uterus non-tender Breast(s): Yes: WNL Musculoskeletal: Yes: WNL Extremities: Yes: WNL Wound/Incision: Yes: Clean/Dry, Well Approximated Neurological: Yes: WNL ...Motor Strength: WNL Labs: CBC, BMP 07/16/17 10:30 07/16/17 10:30 Remarks - Remarks Remarks: 32 yo P2 s/p c/section with elevated BP continue Procardia xl 30mg at home Obtain BP measuring device and report BPs higher than 140/90 to the office follow up in the office in 3 days No need for further antibiotics Discharge Summary Reason For Visit: WOUND DEHISCENCE HYPERTENSION Current Active Problems hypertension (Acute) Wound dehiscence, (Acute) Condition: Stable - Instructions Diet, Activity, Other Instructions: return to office on thurs for b/p and wound check. Referrals: Jp Moreira MD [Staff Physician] - Disposition: HOME - Home Medications Comprehensive Discharge Medication List: Ambulatory Orders Nifedipine ER [Procardia Xl -] 30 mg PO DAILY #30 tab.er.24 07/16/17
== END 2017-07-16 13:05 | disposition home or self-care (01) | DRG 776 ==
LOC: JER 18:14 → JERBED 21:09 → J3W 22:53
PROVIDERS: ADMIT Obstetrics & Gynecology; ATTEND Obstetrics & Gynecology
DX: O16.5 Unspecified maternal hypertension, complicating the puerperium (principal); O90.0 Disruption of cesarean delivery wound
CPT/HCPCS: 36415; 80048; 80053; 80076; 81003; 81015; 85025; 90686; 99282-25; G0008

== ENCOUNTER 2021-05-24 19:21 | Emergency (ER) | payer OTHER ==
[2021-05-24 19:36] VITALS: BP 140/85; PULSE 60; TEMP 98.5; BMI 21.7
[2021-05-24] MEDS ORDERED: ACETAMINOPHEN 325 MG TABLET (FP) PO ONE (20:40)
[2021-05-24 21:12] LABS: BASO % 1.2 % (0-2.0); EOS % 3.8 % (0-4.5); HEMATOCRIT 39.3 % (32.4-45.2); HEMOGLOBIN 13.4 GM/dL (10.7-15.3); LYMPH % 37.2 % (8-40); MCH 30.9 pg (25.7-33.7); MEAN CELL VOLUME 90.8 fl (80-96); MEAN PLT VOLUME 8.7 fl (7.5-11.1); MONO % 8.5 % (3.8-10.2); NEUT % 49.3 % (42.8-82.8); PLATELET COUNT 158 10^3/uL (134-434); RBC 4.33 M/mm3 (3.60-5.2); RDW 13.7 % (11.6-15.6); WHITE BLOOD COUNT 6.2 K/mm3 (4.0-10.0)
[2021-05-24 21:22] LABS: CHLORIDE 110 mmol/L (98-107); SODIUM 140 mmol/L (136-145)
[2021-05-24 21:24] LABS: CALCIUM 8.4 mg/dL (8.5-10.1)
[2021-05-24 21:25] LABS: ALBUMIN 3.8 g/dl (3.4-5.0); ANION GAP 7 MMOL/L (8-16); BLOOD UREA NITROGEN 11.9 mg/dL (7-18); CO2 24 mmol/L (21-32); GLUCOSE,RANDOM 87 mg/dL (74-106)
[2021-05-24 21:28] LABS: CREATININE 0.8 mg/dL (0.55-1.3); SGOT/AST 15 U/L (15-37); SGPT/ALT 16 U/L (13-61)
[2021-05-24 21:29] LABS: BILIRUBIN,TOTAL 0.5 mg/dL (0.2-1); TOT PROT 6.9 g/dl (6.4-8.2)
[2021-05-24 21:31] LABS: ALK PHOS 56 U/L (45-117)
== END 2021-05-25 02:03 | disposition home or self-care (01) ==
LOC: JER 19:21
DX: R07.9 Chest pain, unspecified (principal)
CPT/HCPCS: 36415; 71046-TC-FY; 80053; 82550; 84443; 84484; 84703; 85025; 93005; 93010; 99285-25

== ENCOUNTER 2022-05-17 14:12 | Emergency (ER) | payer OTHER ==
[2022-05-17 14:27] VITALS: TEMP 98.2; BMI 20.1
[2022-05-17] MEDS ORDERED: SODIUM CHLORIDE 0.9% 500 ML INFUS.BAG IV ONE (15:46)
[2022-05-17] MEDS ORDERED: FAMOTIDINE 20 MG/50 ML IVPB 20 MG/50 ML MG IVPB ONE ×2 (15:46→16:07)
[2022-05-17 16:52] LABS: BASO % 0.5 % (0-2.0); EOS % 2.2 % (0-4.5); HEMATOCRIT 40.5 % (32.4-45.2); HEMOGLOBIN 13.8 GM/dL (10.7-15.3); LYMPH % 22.3 % (8-40); MCH 30.9 pg (25.7-33.7); MCHC 34.2 g/dl (32.0-36.0); MEAN CELL VOLUME 90.5 fl (80-96); MEAN PLT VOLUME 9.5 fl (7.5-11.1); MONO % 10.1 % (3.8-10.2); NEUT % 64.9 % (42.8-82.8); PLATELET COUNT 151 10^3/uL (134-434); RBC 4.47 M/mm3 (3.60-5.2); RDW 13.6 % (11.6-15.6); WHITE BLOOD COUNT 5.5 K/mm3 (4.0-10.0)
[2022-05-17 17:01] LABS: ALBUMIN 3.8 g/dl (3.4-5.0); BLOOD UREA NITROGEN 11.8 mg/dL (7-18); CALCIUM 8.8 mg/dL (8.5-10.1)
[2022-05-17 17:04] LABS: CREATININE 0.7 mg/dL (0.55-1.3)
[2022-05-17 17:05] LABS: BILIRUBIN,TOTAL 0.5 mg/dL (0.2-1)
[2022-05-17 20:40] VITALS: BP 136/78; PULSE 88; RESP 19
== END 2022-05-17 20:46 | disposition home or self-care (01) ==
LOC: JER 14:12
PROC: 3E033GC Introduction of Other Therapeutic Substance into Peripheral Vein, Percutaneous Approach (ICD-10-PCS; principal; 2022-05-17)
DX: K51.90 Ulcerative colitis, unspecified, without complications (principal)
CPT/HCPCS: 36415; 74177-TC; 80053; 83690; 84703; 85025; 99285-25; Q9967

== ENCOUNTER 2023-10-10 18:28 | Emergency (ER) | payer OTHER ==
[2023-10-10 18:42] VITALS: BP 124/69; PULSE 88; RESP 16; BMI 19.3
== END 2023-10-10 23:04 | disposition home or self-care (01) ==
LOC: JER 18:28
DX: R09.81 Nasal congestion (principal); J32.9 Chronic sinusitis, unspecified; H66.93 Otitis media, unspecified, bilateral; H92.03 Otalgia, bilateral; Z20.822 Contact with and (suspected) exposure to COVID-19
CPT/HCPCS: 0241U-QW; 99283-25

== ENCOUNTER 2024-05-02 22:31 | Emergency (ER) | payer OTHER ==
[2024-05-02 22:47] VITALS: BP 144/90; PULSE 63; RESP 18; TEMP 98.3; BMI 20.1
[2024-05-02] MEDS ORDERED: METHOCARBAMOL 500 MG TABLET ONE (23:19)
[2024-05-02] MEDS ORDERED: ACETAMINOPHEN 325 MG TABLET (FP) ONE (23:19)
[2024-05-02] MEDS: ACETAMINOPHEN 500 MG TABLET (FP) PO ONE (23:20)
[2024-05-02] MEDS: METHOCARBAMOL 500 MG TABLET PO ONE (23:20)
[2024-05-02] MEDS ORDERED: KETOROLAC TROMETHAMINE 30 MG/1 ML VIAL ONE (23:47)
[2024-05-02] MEDS: KETOROLAC TROMETHAMINE 30 MG/1 ML VIAL IM ONE (23:49)
== END 2024-05-03 00:58 | disposition home or self-care (01) ==
LOC: JER 22:31
PROC: 3E0233Z Introduction of Anti-inflammatory into Muscle, Percutaneous Approach (ICD-10-PCS; principal; 2024-05-02)
DX: S76.111A Strain of right quadriceps muscle, fascia and tendon, initial encounter (principal); X50.0XXA Overexertion from strenuous movement or load, initial encounter; Y99.0 Civilian activity done for income or pay
CPT/HCPCS: 73502-TC-RT-FY; 84703; 99284-25